=== PATIENT | male | born 1985 | race Caucasian/White ===

== ENCOUNTER → 2018-08-25 | Outpatient (CLI) | payer OTHER ==
[~2018-08-25] MED LIST: GADOBUTROL 10 ML VIAL IVP ONE
== END ==
LOC: FIMAGING 06:55
PROVIDERS: ATTEND Internal Medicine Gastroenterology
DX: K60.4 Rectal fistula (principal); K59.00 Constipation, unspecified
CPT/HCPCS: A9585